=== PATIENT | female | born 1930 ===

== ENCOUNTER → 2017-07-01 | Outpatient (CLI) | payer MEDICARE, OTHER ==
--- NOTE | 2017-07-01 13:10 | RADIOLOGY REPORT (SQ) ---
EXAM DESCRIPTION: CT HEAD WITHOUT COMPLETED DATE/TIME: 07/01/2017 12:53 pm REASON FOR STUDY: R51 HEADACHE R51 HEADACHE COMPARISON: None. TECHNIQUE: Axial images acquired through the brain without intravenous contrast. Images reviewed wi th bone, brain and subdural windows. Images stored on PACS. All CT scanners at this facility use dose modulation, iterative reconstruction, and/or weight based d osing when appropriate to reduce radiation dose to as low as reasonably achievable (ALARA). [facility]: Dose Right [facility]: CareDose [facility]: Dose Right [facility]: Teradose 4D [facility]: Smart InteliCloud RADIATION DOSE: CT Rad equipment meets quality standard of care and radiation dose reduction techniq ues were employed. CTDIvol: 49.0 mGy. DLP: 783 mGy-cm. mGy. LIMITATIONS: None. FINDINGS: VENTRICLES: Prominent ventricles secondary to involutional atrophy. CEREBRUM: No masses. No hemorrhage. No midline shift. No evidence for acute infarction. Few scatte red areas of low density in the white matter most likely chronic small vessel ischemic changes. Elia ical atrophy is present. CEREBELLUM: No masses. No hemorrhage. No alteration of density. No evidence for acute infarction. EXTRAAXIAL SPACES: Cannot exclude a small chronic left subdural fluid collection. This is isodense w ith CSF. ORBITS AND GLOBE: No intra- or extraconal masses. Normal contour of globe without masses. CALVARIUM: No fracture. PARANASAL SINUSES: No fluid or mucosal thickening. SOFT TISSUES: No mass or hematoma. OTHER: No other significant finding. IMPRESSION: Involutional changes of aging with mild chronic microvascular ischemia. Cannot exclude a small chronic subdural fluid collection on the left. This measures 7 mm in depth on image 15. EVIDENCE OF ACUTE STROKE: NO. COMMENT: Quality ID # [id number]: Final reports with documentation of one or more dose reduction techniques (e.g., Automated exposure control, adjustment of the mA and/or kV according to patient size, use of iterative reconstruction technique) TECHNICAL DOCUMENTATION: JOB ID: [id number]- All Rights Reserved
== END ==
LOC: RAD 12:36
PROVIDERS: ATTEND Physician Assistant
DX: R51 Headache (principal)
CPT/HCPCS: 70450